=== PATIENT | male | born 1980 | race Caucasian/White ===

== ENCOUNTER 2019-10-01 11:13 | Emergency (ER) | payer MEDICAID ==
[~2019-10-01 11:13] MED LIST: Sodium Chloride Irrig Solution 250 ML BOT ONE
[2019-10-01] MEDS ORDERED: Adacel (T-DAP) 0.5 ML SYRINGE ONE (11:47)
[2019-10-01] MEDS ORDERED: Lidocaine 2% w/Epinephrine 1:200K 20 ML VIAL ONE (11:59)
[2019-10-01] MEDS ORDERED: Rabies Vaccine Human 2.5 UNITS VIAL ONE (12:12)
--- NOTE | 2019-10-01 12:18 | RAD ---
Exam: XR Forearm Lt 2 View STANDARD HISTORY: Laceration. COMPARISON: None FINDINGS: There is subcutaneous soft tissue swelling seen at the volar and medial aspect of the distal left for earm with suggestion of soft tissue irregularity likely related to laceration. A punctate metallic appearing density is seen overlying subcutaneous soft tissues lateral distal left forearm. This is on ly seen on the AP projection and is not seen on lateral view and may be related to overlying artifact. No acute fracture, dislocation, or other acute osseous abnormality is identified. IMPRESSION: 1. Laceration subcutaneous soft tissue swelling at the distal and lateral aspect left forearm. 2. No acute osseous abnormality.
[2019-10-01] MEDS ORDERED: Bacitracin 1 PK ONE (12:26)
== END 2019-10-01 13:06 | disposition home or self-care (01) ==
LOC: MADERS 11:13
DX: S51.852A Open bite of left forearm, initial encounter (principal); Z79.899 Other long term (current) drug therapy; Z23 Encounter for immunization; W55.41XA Bitten by pig, initial encounter
CPT/HCPCS: 90376; 90471; 90472; 90675; 90715; 96372

== ENCOUNTER → 2019-10-04 | Day surgery (SDC) | payer MEDICAID ==
[~2019-10-04] MED LIST changes: +Rabies Vaccine Human 2.5 UNITS VIAL ONE; -Sodium Chloride Irrig Solution 250 ML BOT ONE
== END ==
LOC: MADERS 11:39
PROVIDERS: ATTEND Emergency Medicine Emergency Medical Services
DX: Z29.14 Encounter for prophylactic rabies immune globulin (principal)
CPT/HCPCS: 90675

== ENCOUNTER → 2019-10-08 | Day surgery (SDC) | payer MEDICAID | LOC: MADER/OP 13:56 | PROVIDERS: ATTEND Emergency Medicine Emergency Medical Services | DX: Z29.14 Encounter for prophylactic rabies immune globulin (principal) | CPT/HCPCS: 90675 ==

== ENCOUNTER → 2019-10-15 | Day surgery (SDC) | payer MEDICAID | LOC: MADER/OP 09:01 → EDSTATUS 15:00 | PROVIDERS: ATTEND Emergency Medicine | DX: Z29.14 Encounter for prophylactic rabies immune globulin (principal) | CPT/HCPCS: 90675 ==

== ENCOUNTER 2020-07-12 20:57 | Emergency (ER) | payer MEDICAID ==
[2020-07-12 21:53] LABS: #Basophils 0.1 thou/uL (0.0-0.2); #Eosinphils 0.2 thou/uL (0.0-0.7); #Neutrophils 5.4 thou/uL (1.40-6.50); %Basophils 1.2 % (0.0-1.0); %Eosinophils 2.3 % (0.0-10.0); %Lymphocytes 23.4 % (21.0-51.0); %Monocytes 11.3 % (0.0-10.0); %Neutrophils 61.9 % (42.0-75.0); Hemoglobin 14.4 g/dL (14.0-18.0); Mean Corpuscular Hemoglobin 29.6 pg (27.0-31.0); Mean Corpuscular Volume 92.6 fL (78.0-98.0); Mean Platelet Volume 9.9 fL (7.4-10.4); Platelet Count 433 thou/uL (130-400); Red Blood Cell (RBC) Count 4.85 mill/uL (4.70-6.10); White Blood Cell (WBC) Count 8.7 thou/uL (4.8-10.8)
[2020-07-12 22:07] LABS: ALT (SGPT) 72 U/L (8-55); AST (SGOT) 27 U/L (5-34); Albumin 4.4 g/dL (3.5-5.0); Alkaline Phosphatase 60 U/L (40-110); Anion Gap 19 mmol/L (10-20); BUN (Urea Nitrogen) 19 mg/dL (8.9-20.6); Bilirubin, Total 0.3 mg/dL (0.2-1.2); CK (CPK) 328 U/L (30-200); Calc. Creatinine Clearance 0 mL/min (70-130); Calcium 9.2 mg/dL (7.8-10.44); Carbon Dioxide 21 mmol/L (22-29); Chloride 105 mmol/L (98-107); Globulin 3.2 g/dL (2.4-3.5); Glucose 106 mg/dL (70-105); Lipase 25 U/L (8-78); Potassium 3.6 mmol/L (3.5-5.1); Protein, Total 7.6 g/dL (6.0-8.3); Sodium 141 mmol/L (136-145)
[2020-07-12 22:08] LABS: Acetaminophen Less than 6.0 mcg/mL (10.0-30.0); Alcohol 34 mg/dL (Less than 10); Salicylate Less than 8.0 mg/dL (15.0-30.0)
[2020-07-12 22:29] LABS: Bilirubin Negative (Negative); Blood, Urine Trace (Negative); Clarity Clear (Clear); Glucose, Urine (Dipstick) Negative (Negative); Ketone, Urine Negative (Negative); Leukocyte Negative (Negative); Nitrite Negative (Negative); Protein, Urine (Dipstick) Negative (Neg-Trace); pH, Urine 5.5 (5.0-9.0)
[2020-07-12 22:30] LABS: RBC/HPF 0-3 HPF (0-3)
[2020-07-12 22:31] LABS: Bacteria/HPF Rare-Few HPF (None Seen); Mucous/LPF 2+ LPF (<2+); Squamous Epithelial 0-3 HPF (0-3); WBC/HPF 0-3 HPF (0-3)
[2020-07-12 22:37] LABS: Amphetamine Not Detected (NotDetected); Barbiturates Screen Not Detected (NotDetected); Benzodiazepine Screen Not Detected (NotDetected); Cocaine Metabolite Screen Not Detected (NotDetected); Methadone Not Detected (NotDetected); Methamphetamine Not Detected (NotDetected); Opiate Screen Detected (NotDetected); Oxycodone Screen Not Detected (NotDetected); Phencyclidine (PCP) Not Detected (NotDetected); THC/Cannabinoid Screen Detected (NotDetected); Tricyclic Screen Not Detected (NotDetected)
[2020-07-12 22:38] LABS: Medtox Control Line Valid? VALID (VALID)
== END 2020-07-12 22:57 | disposition home or self-care (01) ==
LOC: MADERS 20:57
DX: R20.2 Paresthesia of skin (principal); M79.10 Myalgia, unspecified site; S60.812A Abrasion of left wrist, initial encounter; S60.811A Abrasion of right wrist, initial encounter; Z79.891 Long term (current) use of opiate analgesic; Z79.899 Other long term (current) drug therapy; X58.XXXA Exposure to other specified factors, initial encounter
CPT/HCPCS: 80053; 80306; 80307; 81003; 81015; 82550; 83690; 85025; 99283

== ENCOUNTER 2021-01-20 11:41 | Emergency (ER) | payer MEDICAID | END 2021-01-20 12:50 | disposition home or self-care (01) | LOC: MADERS 11:41 | DX: S82.841D Displaced bimalleolar fracture of right lower leg, subsequent encounter for closed fracture with routine healing (principal); Z79.899 Other long term (current) drug therapy | CPT/HCPCS: 29515 ==

== ENCOUNTER 2021-09-26 08:54 | Outpatient (CLI) | payer MEDICAID | END 2021-09-26 08:55 | disposition home or self-care (01) | LOC: MADULT 08:54 | PROVIDERS: ATTEND Physician Assistant | DX: N50.811 Right testicular pain (principal); N44.2 Benign cyst of testis | CPT/HCPCS: 76870; 93976 ==

== ENCOUNTER 2022-01-08 12:04 | Emergency (ER) | payer MEDICAID | END 2022-01-08 13:30 | disposition home or self-care (01) | LOC: MADERS 12:04 | DX: S62.316A Displaced fracture of base of fifth metacarpal bone, right hand, initial encounter for closed fracture (principal); S63.501A Unspecified sprain of right wrist, initial encounter; W11.XXXA Fall on and from ladder, initial encounter; Y99.0 Civilian activity done for income or pay ==

== ENCOUNTER 2022-03-10 14:42 | Emergency (ER) | payer MEDICAID ==
[2022-03-10] MEDS ORDERED: Lidocaine 1% PF 5 ML VIAL ONE (15:32)
== END 2022-03-10 16:10 | disposition home or self-care (01) ==
LOC: MADERS 14:42
DX: S91.142A Puncture wound with foreign body of left great toe without damage to nail, initial encounter (principal); W45.8XXA Other foreign body or object entering through skin, initial encounter
CPT/HCPCS: 28190

== ENCOUNTER 2022-07-10 20:33 | Emergency (ER) | payer MEDICAID ==
[2022-07-10 22:12] LABS: #Basophils 0.1 thou/uL (0.0-0.2); #Eosinphils 0.3 thou/uL (0.0-0.7); #Monocytes 0.8 thou/uL (0.11-0.59); #Neutrophils 3.5 thou/uL (1.40-6.50); %Basophils 1.2 % (0.0-1.0); %Eosinophils 3.4 % (0.0-10.0); %Monocytes 10.7 % (0.0-10.0); %Neutrophils 45.7 % (42.0-75.0); Hemoglobin 13.3 g/dL (14.0-18.0); Mean Corpuscular HGB CONC 34.8 g/dL (32.0-36.0); Mean Corpuscular Hemoglobin 31.4 pg (27.0-31.0); Mean Corpuscular Volume 90.2 fl (78.0-98.0); Mean Platelet Volume 12.1 fL (7.4-10.4); Platelet Count 229 10x3/uL (130-400); RBC Distribution Width 11.2 % (11.5-14.5); Red Blood Cell (RBC) Count 4.24 mill/uL (4.70-6.10); White Blood Cell (WBC) Count 7.7 10x3/uL (4.8-10.8)
[2022-07-10 22:12] LABS: Bilirubin Negative (Negative); Blood, Urine Negative (Negative); Clarity Clear (Clear); Glucose, Urine (Dipstick) Negative (Negative); Ketone, Urine Negative (Negative); Leukocyte Negative (Negative); Nitrite Negative (Negative); Protein, Urine (Dipstick) Negative (Neg-Trace); Urobilinogen 0.2 mg/dL (Less than 2); pH, Urine 5.5 (5.0-9.0)
[2022-07-10 22:29] LABS: ALT (SGPT) 17 U/L (8-55); AST (SGOT) 26 U/L (5-34); Albumin 4.3 g/dL (3.5-5.0); Alkaline Phosphatase 47 U/L (40-110); Anion Gap 13 mmol/L (10-20); BUN (Urea Nitrogen) 16 mg/dL (8.9-20.6); Bilirubin, Total 0.4 mg/dL (0.2-1.2); Calc. Creatinine Clearance 0 mL/min (70-130); Carbon Dioxide 23 mmol/L (22-29); Chloride 106 mmol/L (98-107); Estimated GFR 90; Globulin 2.6 g/dL (2.4-3.5); Glucose 89 mg/dL (70-105); Potassium 3.7 mmol/L (3.5-5.1); Protein, Total 6.9 g/dL (6.0-8.3); Sodium 138 mmol/L (136-145)
== END 2022-07-10 22:55 | disposition home or self-care (01) ==
LOC: MADERS 20:33
DX: R29.898 Other symptoms and signs involving the musculoskeletal system (principal); F17.290 Nicotine dependence, other tobacco product, uncomplicated
CPT/HCPCS: 36415; 71045; 74176; 80053; 81003; 85025

== ENCOUNTER 2023-02-06 21:57 | Emergency (ER) | payer MEDICAID ==
[2023-02-06 22:57] LABS: #Basophils 0.1 thou/uL (0.0-0.2); #Eosinphils 0.1 thou/uL (0.0-0.7); #Lymphocytes 2.2 thou/uL (1.20-3.40); #Monocytes 0.7 thou/uL (0.11-0.59); #Neutrophils 3.8 thou/uL (1.40-6.50); %Basophils 0.9 % (0.0-1.0); %Eosinophils 2.1 % (0.0-10.0); %Lymphocytes 32.4 % (21.0-51.0); %Monocytes 10.2 % (0.0-10.0); %Neutrophils 54.4 % (42.0-75.0); Hematocrit 39.5 % (42.0-52.0); Hemoglobin 13.5 g/dL (14.0-18.0); Mean Corpuscular HGB CONC 34.1 g/dL (32.0-36.0); Mean Corpuscular Hemoglobin 31.5 pg (27.0-31.0); Mean Corpuscular Volume 92.3 fl (78.0-98.0); Mean Platelet Volume 11.5 fL (7.4-10.4); Platelet Count 211 10x3/uL (130-400); RBC Distribution Width 11.3 % (11.5-14.5); Red Blood Cell (RBC) Count 4.28 mill/uL (4.70-6.10); White Blood Cell (WBC) Count 6.9 10x3/uL (4.8-10.8)
[2023-02-06 23:18] LABS: ALT (SGPT) 22 U/L (8-55); AST (SGOT) 20 U/L (5-34); Albumin 4.3 g/dL (3.5-5.0); Alkaline Phosphatase 54 U/L (40-110); Anion Gap 15 mmol/L (10-20); BUN (Urea Nitrogen) 24 mg/dL (8.9-20.6); Bilirubin, Total 0.6 mg/dL (0.2-1.2); Calc. Creatinine Clearance 0 mL/min (70-130); Calcium 9.2 mg/dL (7.8-10.44); Carbon Dioxide 23 mmol/L (22-29); Chloride 104 mmol/L (98-107); Estimated GFR 83; Globulin 2.7 g/dL (2.4-3.5); Glucose 120 mg/dL (70-105); Magnesium 2.1 mg/dL (1.6-2.6); Sodium 138 mmol/L (136-145)
== END 2023-02-06 23:53 | disposition home or self-care (01) ==
LOC: MADERS 21:57
DX: R20.2 Paresthesia of skin (principal); R51.9 Headache, unspecified; M79.601 Pain in right arm; F17.210 Nicotine dependence, cigarettes, uncomplicated; F17.220 Nicotine dependence, chewing tobacco, uncomplicated; K21.9 Gastro-esophageal reflux disease without esophagitis; Z79.899 Other long term (current) drug therapy
CPT/HCPCS: 36415; 70450; 80053; 83735; 85025; 85379; 93005